=== PATIENT | female | born 1970 | race Asian ===

== ENCOUNTER 2019-03-02 20:18 | Emergency (ER) | payer SELFPAY ==
[2019-03-02] MEDS ORDERED: Dicyclomine CAP* 10 MG PO ONE (21:02)
[2019-03-02] MEDS ORDERED: NS 0.9% 1000 ML** 1,000 ML IV ONE (21:02)
--- NOTE | 2019-03-02 21:04 | ED ---
Abdominal Pain/Female - HPI Summary HPI Summary: This pt is a 48 y/o female presenting to [facility] c/o left sided abd pain for the past 2 days. Pt reports associated diarrhea, she notes her last bowel movement was around 3 hours ago. She also states she had a fever 1 day ago, but none since then. Pt describes her abd pain intermittent every 15 minutes that lasts about 1 minute. Her pain is aggravated after eating. Denies nausea, vomiting. Pt only had 1 apple to eat today because she notes her pain is worse after eating. She recently traveled from [place] last week. No PMHx. - History of Current Complaint Chief Complaint: EDAbdPain Stated Complaint: ABD PAIN, DIARRHEA PER DAUGHTER Time Seen by Provider: 03/02/19 20:49 Hx Obtained From: Patient Onset/Duration: Lasting Days - 2, Still Present Timing: Days - 2 Severity Currently: Moderate Pain Intensity: 8 Pain Scale Used: 0-10 Numeric Location: Other - left sided abd Radiates: No Aggravating Factor(s): Nothing Alleviating Factor(s): Nothing Associated Signs and Symptoms: Positive: Fever, Diarrhea. Negative: Nausea, Vomiting Allergies/Adverse Reactions: Allergies Allergy/AdvReac Type Severity Reaction Status Date / Time No Known Allergies Allergy Verified 03/02/19 20:32 PMH/Surg Hx/FS Hx/Imm Hx Endocrine/Hematology History: Denies: Hx Diabetes Cardiovascular History: Denies: Hx Hypertension Infectious Disease History: No Infectious Disease History: Reports: Traveled Outside the in Last 30 Days - [place] - Family History Known Family History: Negative: Cardiac Disease, Hypertension - Social History Alcohol Use: None Substance Use Type: Reports: None Smoking Status (MU): Never Smoked Tobacco Review of Systems Negative: Fever, Chills Cardiovascular: Negative Respiratory: Negative Positive: Abdominal Pain, Diarrhea. Negative: Vomiting, Nausea All Other Systems Reviewed And Are Negative: Yes Physical Exam - Summary Physical Exam Summary: VITAL SIGNS: Reviewed. GENERAL: Patient is a well-developed and nourished female who is lying comfortable in the stretcher. Patient is not in any acute respiratory distress. HEAD AND FACE: No signs of trauma. No ecchymosis, hematomas or skull depressions. No sinus tenderness. EYES: PERRLA, EOMI x 2, No injected conjunctiva, no nystagmus. EARS: Hearing grossly intact. Ear canals and tympanic membranes are within normal limits. MOUTH: Oropharynx within normal limits. NECK: Supple, trachea is midline, no adenopathy, no JVD, no carotid bruit, no c- spine tenderness, neck with full ROM. CHEST: Symmetric, no tenderness at palpation LUNGS: Clear to auscultation bilaterally. No wheezing or crackles. CVS: Regular rate and rhythm, S1 and S2 present, no murmurs or gallops appreciated. ABDOMEN: Soft, non-tender. No signs of distention. No rebound no guarding, and no masses palpated. Bowel sounds are normal. EXTREMITIES: FROM in all major joints, no edema, no cyanosis or clubbing. NEURO: Alert and oriented x 3. No acute neurological deficits. Speech is normal and follows commands. SKIN: Dry and warm Triage Information Reviewed: Yes Vital Signs On Initial Exam: Initial Vitals Temp Pulse Resp BP Pulse Ox 98.6 F 76 18 112/68 98 03/02/19 20:28 03/02/19 20:28 03/02/19 20:28 03/02/19 20:28 03/02/19 20:28 Vital Signs Reviewed: Yes Diagnostics - Vital Signs Vital Signs Temp Pulse Resp BP Pulse Ox 03/02/19 20:28 98.6 F 76 18 112/68 98 - Laboratory Result Diagrams: 03/02/19 21:12 03/02/19 21:12 Lab Statement: Any lab studies that have been ordered have been reviewed, and results considered in the medical decision making process. - CT Abdomen/pelvis CT CT Interpretation Completed By: Radiologist Summary of CT Findings: IMPRESSION: Marked thickening of the ascending and transverse colon with surrounding mild inflammation representing colitis. No bowel dilatation or obstruction. Large Leiomyomatus uterus causing mass effect on the endometrial canal and urinary bladder with displacement of the urinary bladder towards the right, follow up with ultrasound is recommended. 8.6 mm enhancing focus in right ovary likely dominant follicles. Dr. Ellis has reviewed this report. Re-Evaluation - Re-Evaluation First Eval Re-Evaluation Time: 00:42 Comment: Reviewed lab and CT results with pt. She will be discharged home. Abdominal Pain Fem Course/Dx - Course Course Of Treatment: Pt is a 48 y/o female who presents to the ED c/o left sided abd pain for the past 2 days. Pt reports associated diarrhea, she notes her last bowel movement was around 3 hours ago. She also states she had a fever 1 day ago, but none since then. Pt describes her abd pain intermittent every 15 minutes that lasts about 1 minute. Her pain is aggravated after eating. Denies nausea, vomiting. Lab results remarkable for hemoglobin of 9.6, hematocrit of 32, CRP of 76.49. Abdomen/Pelvis CT shows marked thickening of the ascending and transverse colon with surrounding mild inflammation representing colitis. No bowel dilatation or obstruction. Large Leiomyomatus uterus causing mass effect on the endometrial canal and urinary bladder with displacement of the urinary bladder towards the right, follow up with ultrasound is recommended. 8.6 mm enhancing focus in right ovary likely dominant follicles. In the ED course the pt was given IV fluids, Percocet, Flagyl, Levaquin, Bentyl. Pt will be discharged home with follow up from her PCP in 2-3 days. She was given prescriptions for Levaquin, Flagyl, Percocet. Return to ED precautions were given. - Diagnoses Provider Diagnoses: Fibroid uterus, Colitis Discharge - Sign-Out/Discharge Documenting (check all that apply): Patient Departure - Discharge home Patient Received Moderate/Deep Sedation with Procedure: No - Discharge Plan Condition: Stable Disposition: HOME Prescriptions: Levofloxacin TAB* [Levaquin TAB*] 500 mg PO DAILY #7 tab metroNIDAZOLE [Flagyl 500 MG TAB] 500 mg PO TID #20 tab oxyCODONE/Acetamin 5/325 MG* [Percocet 5/325 TAB*] 1 tab PO Q6H PRN #14 tab MDD 4 PRN Reason: Pain Patient Education Materials: Colitis (ED) Referrals: Care [facility] [Outside] Additional Instructions: Follow up with your primary care provider in 2-3 days. If you don't have one, please follow up with [facility]. RETURN TO THE ED IMMEDIATELY FOR WORSENING OR CONCERNING SYMPTOMS. - Attestation Statements Document Initiated by Scribe: Yes Documenting Scribe: Elizabeth Canchola Provider For Whom Crystalibmaikel is Documenting (Include Credential): Elvia Ellis MD Scribe Attestation: Elizabeth Phelan, scribed for Elvia Ellis MD on 03/03/19 at 0108. Status of Scribe Document: Ready
[2019-03-02 21:28] LABS: Hematocrit 32 % (35-47); Hemoglobin 9.6 g/dL (12.0-16.0); Mean Corpuscular HGB Conc 30 g/dL (31-36); Mean Corpuscular Hemoglobin 19 pg (27-31); Mean Corpuscular Volume 64 fL (80-97); Mean Platelet Volume 7.1 fL (7.4-10.4); Platelet Count 224 10^3/uL (150-450); Red Blood Count 4.96 10^6 /uL (3.70-4.87); Red Cell Distribution Width 20 % (10-15); White Blood Count 6.3 10^3/uL (3.5-10.8)
[2019-03-02 21:38] LABS: ALT 8 U/L (7-52); AST 11 U/L (13-39); Albumin 3.8 g/dL (3.2-5.2); Albumin/Globulin Ratio 1.1 (1-3); Alkaline Phosphatase 41 U/L (34-104); Amylase 33 U/L (29-103); Anion Gap 9 mmol/L (2-11); BUN/Creatinine Ratio 15.7 (8-20); Blood Urea Nitrogen 11 mg/dL (6-24); C Reactive Protein 76.49 mg/L (<8.01); CO2 Carbon Dioxide 24 mmol/L (22-32); Chloride 104 mmol/L (101-111); EGFR Non-African American 90.1 (>60); Globulin 3.4 g/dL (2-4); Glucose 102 mg/dL (70-100); Potassium 3.8 mmol/L (3.5-5.0); Sodium 137 mmol/L (135-145); Total Protein 7.2 g/dL (6.4-8.9)
[2019-03-02 21:41] LABS: Polychromasia 1+
[2019-03-02 21:42] LABS: Microcytosis 2+; Tear Drop Cells 1+
[2019-03-02 21:44] LABS: ABS Lymphocytes 0.9 10^3/ul (1.0-4.8); ABS Monocytes 0.9 10^3/ul (0-0.8); ABS Neutrophils 4.4 10^3/ul (1.5-7.7); Eosinophil % 0.4 %
[2019-03-02 21:45] LABS: HCG Pregnancy < 0.60 mIU/mL
[2019-03-02] MEDS ORDERED: Iohexol 300* (CONTRAST) 10 ML SDV IV ONE (22:09)
[2019-03-02 22:28] LABS: Urine Appearance Cloudy; Urine Bacteria Absent (Absent); Urine Bilirubin Negative (Negative); Urine Blood 1+ (Negative); Urine Color Yellow; Urine Glucose Negative (Negative); Urine Ketones 1+ (Negative); Urine Nitrite Negative (Negative); Urine Protein Negative (Negative); Urine Red Blood Cell Absent (Absent); Urine Squamous Epithelial Cell Present (Absent); Urine Urobilinogen Negative (Negative); Urine White Blood Cell Trace(0-5/hpf) (Absent)
[2019-03-03] MEDS ORDERED: metroNIDAZOLE TAB* 250 MG PO ONE (00:44)
[2019-03-03] MEDS ORDERED: Levofloxacin TAB* 500 MG PO ONE (00:44)
[2019-03-03] MEDS ORDERED: oxyCODONE/Acetamin 5/325 MG* TAB PO ONE (00:45)
[2019-03-03 01:17] VITALS: BP 116/76
== END 2019-03-03 01:05 | disposition home or self-care (01) ==
LOC: ED 20:18
DX: D25.9 Leiomyoma of uterus, unspecified (principal); K52.9 Noninfective gastroenteritis and colitis, unspecified
CPT/HCPCS: 36415; 74177; 80053; 81003; 81015; 82150; 83690; 83735; 84702; 85025; 85060; 86140; 87086; 96360; 96361; 99283; A9270-GY; Q9967